=== PATIENT | male | born 1990 | race Caucasian/White ===

== ENCOUNTER 2022-09-10 20:50 | Emergency (ER) | payer SELFPAY ==
[~2022-09-10] VITALS: Ht 182.9 cm; Wt 104.3 kg
[2022-09-10 21:00] VITALS: BP 135/90
--- NOTE | 2022-09-10 22:18 | NUR ---
PT TO 2
[2022-09-10] MEDS ORDERED: DICYCLOMINE HCL LIQUID 20 MG, ALUMINUM HYD/MAG/SIMETHICONE 30 ML, LIDOCAINE VISCOUS 2% ... PO ONE ×3 (22:40)
[2022-09-10] MEDS ORDERED: ALUMINUM HYD/MAG/SIMETHICONE 30 ML UDC ONE (22:56)
[2022-09-10] MEDS ORDERED: DICYCLOMINE HCL LIQUID 10 MG/5 ML UDC ONE (22:56)
[2022-09-10] MEDS ORDERED: BACLOFEN 10 MG TAB PO SCH (23:00)
[2022-09-10] MEDS ORDERED: KETOROLAC 30 MG/ML VIAL IM ONE (23:00)
[2022-09-10 23:06] LABS: BASOPHILS % (AUTO) 0.2 % (0.0-2.0); EOSINOPHILS # (AUTO) 0.1 K/uL (0-0.4); EOSINOPHILS % (AUTO) 0.7 % (0.0-4.0); HEMATOCRIT 45.1 % (36-52); HEMOGLOBIN 15.2 g/dL (12.0-18.0); LYMPHOCYTES # (AUTO) 1.9 K/uL (2.0-11.5); LYMPHOCYTES % (AUTO) 22.4 % (20.5-51.1); MEAN CORPUSCULAR HEMOGLOBIN 29 pg (27-31); MEAN CORPUSCULAR HGB CONC 34 g/dL (33-37); MEAN CORPUSCULAR VOLUME 86.4 fL (80-94); MONOCYTES # (AUTO) 0.8 K/uL (0.8-1.0); MONOCYTES % (AUTO) 9.7 % (1.7-9.3); NEUTROPHILS # (AUTO) 5.8 K/uL (1.8-7.7); PLATELET COUNT (AUTO) 180 K/uL (140-450); RED BLOOD CELL COUNT(AUTO) 5.21 MIL/uL (4.20-6.10); RED CELL DISTRIBUTION WIDTH 13.7 % (11.6-13.7); WHITE BLOOD COUNT (AUTO) 8.6 K/uL (4.8-10.8)
[2022-09-10 23:24] LABS: ALBUMIN 4.5 g/dL (3.4-5.0); ANION GAP 12.2 (8-16); CARBON DIOXIDE 30.6 mmol/L (21-32); CREATININE 1.1 mg/dL (0.6-1.3); POTASSIUM 3.8 mmol/L (3.5-5.1); TOTAL BILIRUBIN 0.7 mg/dL (0.0-1.0)
[2022-09-11] MEDS ORDERED: NAPR-1704 PO (00:13)
[2022-09-11] MEDS ORDERED: CYCL-711 PO (00:13)
[2022-09-11 00:35] VITALS: BP 135/90
--- NOTE | 2022-09-11 00:35 | NUR ---
Patient discharged with v/s stable. Written and verbal after care instructions given and explained. Patient alert, oriented and verbalized understanding of instructions. Ambulatory with steady gait. All questions addressed prior to discharge. ID band removed. Patient advised to follow up with PMD. Rx of FLEXERIL, AND NAPROSYN given. Patient educated on indication of medication including possible reaction and side effects. Opportunity to ask questions provided and answered.
== END 2022-09-11 00:35 | disposition home or self-care (01) ==
LOC: MED 20:50
DX: S29.011A Strain of muscle and tendon of front wall of thorax, initial encounter (principal); X58.XXXA Exposure to other specified factors, initial encounter; Y93.89 Activity, other specified; Y92.89 Other specified places as the place of occurrence of the external cause; Y99.8 Other external cause status
CPT/HCPCS: 36415; 71101; 80053; 83690; 85025; 96372; 99284; J1885